=== PATIENT | male | born 1960 | race Two or more races ===

== ENCOUNTER → 2017-01-27 | Outpatient (CLI) | payer MEDICARE, MEDICAID ==
--- NOTE | 2017-01-27 16:09 | Diagnostic Imaging Report ---
Indications: Chronic pain medial aspect left knee Technique: Coronal T1 weighted fast spin-echo and STIR, sagittal proton density weighted fast spin echo, coronal STIR, coronal, sagittal, and axial axial proton density weighted fat saturated fast spin echo sequences of the left knee were performed without IV or intra-articular gadolinium administration Findings: Comparison: None Medial knee joint compartment mildly narrowed with tiny marginal osteophyte. Peripheral aspect of the femoral condylar articular cartilage appears thinned is absent. Medial meniscus appears diffusely smaller than lateral, is nondisplaced, and contains diffusely increased signal. No associated discrete linear signal abnormality. No femoral or tibial subarticular marrow signal abnormality. Lateral knee joint compartment normal in width. Femoral condylar articular cartilage normal in thickness, contour, signal characteristics. Lateral meniscus normal in position, size, configuration, contains mildly increased signal throughout. No discrete linear signal abnormality. No femoral or tibial subarticular marrow signal abnormality. Patellofemoral joint normal in width. Patellar and trochlear articular cartilage normal in thickness, contour, signal characteristics. No patellar or femoral subarticular marrow signal abnormality. No alignment abnormality. Anterior and posterior cruciate ligaments, medial collateral ligament, lateral collateral ligament complex, quadriceps and patellar tendons, medial and lateral patellar retinacula are normal in configuration and signal characteristics. Small amount of fluid is present in the knee joint and suprapatellar bursa. No intra-articular loose body demonstrated. Distal femur, patella, proximal tibia and fibula normal in configuration and signal characteristics. Popliteal fossa including neurovascular bundle, surrounding musculature and subcutaneous soft tissues unremarkable. 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 Suggestion of mild myxoid degeneration the lateral meniscus; lateral knee joint compartment otherwise unremarkable. Patellofemoral joint unremarkable. Small knee joint/suprapatellar effusion
--- NOTE | 2017-01-27 16:17 | Diagnostic Imaging Report ---
Indications: Chronic pain lateral aspect right knee Technique: Coronal T1 weighted fast spin-echo and STIR, sagittal proton density weighted fast spin echo, coronal STIR, coronal, sagittal, and axial axial proton density weighted fat saturated fast spin echo sequences of the right knee were performed without IV or intra-articular gadolinium administration Findings: Comparison: None Medial knee joint compartment moderately narrowed with mild marginal osteophyte. Femoral condylar articular cartilage appears demonstrates variable thinning and signal heterogeneity. Medial meniscus is nondisplaced. Its body is decreased in size. Complex signal changes present throughout the body and posterior horn with apparent articular surface contour irregularity. Lesser globular increased signal in anterior horn. No femoral or tibial subarticular marrow signal abnormality. Lateral knee joint compartment normal in width, tiny marginal osteophyte formation. Femoral condylar articular cartilage normal in thickness, contour, signal characteristics. Lateral meniscus normal in position, size, configuration, without significant signal change. No discrete linear signal abnormality. No femoral or tibial subarticular marrow signal abnormality. Patellofemoral joint normal in width. Patellar and trochlear articular cartilage normal in thickness, contour, signal characteristics. No patellar or femoral subarticular marrow signal abnormality. No alignment abnormality. Anterior and posterior cruciate ligaments, medial collateral ligament, lateral collateral ligament complex, quadriceps and patellar tendons, medial and lateral patellar retinacula are normal in configuration and signal characteristics. Small amount of fluid is present in the knee joint and suprapatellar bursa. No intra-articular loose body demonstrated. Distal femur, patella, proximal tibia and fibula normal in configuration and signal characteristics. Popliteal fossa including neurovascular bundle, surrounding musculature and subcutaneous soft tissues unremarkable. 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 Mild osteoarthritis lateral knee joint compartment. No significant cartilaginous abnormality. Patellofemoral joint unremarkable. Small knee joint/suprapatellar effusion
== END | disposition home or self-care (01) ==
LOC: MRI 13:43
DX: M25.562 Pain in left knee (principal); M25.561 Pain in right knee; M17.0 Bilateral primary osteoarthritis of knee

== ENCOUNTER → 2017-04-08 | Outpatient (CLI) | payer MEDICARE, MEDICAID ==
--- NOTE | 2017-04-09 09:03 | Diagnostic Imaging Report ---
Indication: Left elbow pain and swelling Technique: MRI of the left elbow was performed without administration of intravascular or intra-articular contrast material and the following sequences were obtained: Axial T1, PD fat sat and STIR; coronal T1, PD fat-sat and T2 fat-sat; sagittal STIR Findings: Bone marrow is unremarkable. There is no fracture or bone contusion. Major ligaments in the elbow including the anterior band of the ulnar (medial) collateral ligament, radial collateral ligament, the lateral ulnar collateral ligament and the annular ligament are unremarkable. The common flexor and common extensor origins are unremarkable. The tendons of the biceps, triceps and brachialis are unremarkable. No muscle strain is identified. There is no significant joint effusion. There is posterior elbow subcutaneous edema with an approximately 0.8 x 1.8 x 2.2 cm area of more focal fluid signal. Within the anterior elbow anterior to the biceps myotendinous junction, there is a well-circumscribed oval T2 hyperintense lesion measuring 1.4 x 1.1 cm. Impression: Posterior elbow subcutaneous edema with an approximately 0.8 x 1.8 x 2.2 cm area of more focal fluid signal. Possibility of a small abscess, hematoma or focal bursitis should be considered. Clinical correlation recommended. No evidence of osteomyelitis or acute osseous abnormality. Incidental approximately 1.4 x 1.1 cm well-circumscribed oval T2 hyperintense lesion of the anterior elbow. This may be related to a nerve in which case a nerve sheath tumor may be considered versus related to a vessel in which case a focal varix is a possibility. Consider postcontrast imaging for further evaluation.
== END | disposition home or self-care (01) ==
LOC: MRI 14:54
DX: M25.522 Pain in left elbow (principal); R60.0 Localized edema